=== PATIENT | male | born 1965 | race Caucasian/White ===

== ENCOUNTER 2024-03-16 08:42 | Outpatient (CLI) | payer BC ==
[2024-03-16 10:08] LABS: #Basophils 0.03 10x3/uL (0.0-0.2); %Basophils 0.5 % (0.0-1.0); %Eosinophils 1.4 % (0.0-10.0); %Lymphocytes 23.1 % (21.0-51.0); %Monocytes 8.1 % (0.0-10.0); %Neutrophils 66.4 % (42.0-75.0); Hematocrit 38.1 % (42.0-52.0); Hemoglobin 12.2 g/dL (14.0-18.0); Mean Platelet Volume 10.1 fL (7.4-10.4); Platelet Count 175 10x3/uL (130-400); RBC Distribution Width 13.2 % (11.5-14.5); Red Blood Cell (RBC) Count 3.81 mill/uL (4.70-6.10)
[2024-03-16 10:12] LABS: Bilirubin Negative (Negative); Blood, Urine Negative (Negative); Clarity Clear (Clear); Glucose, Urine (Dipstick) Normal (Negative); Ketone, Urine Negative (Negative); Leukocyte Negative Leu/uL (Negative); Nitrite Negative (Negative); Protein, Urine (Dipstick) Negative (Neg-Trace); Specific Gravity, Urine 1.002 (1.002-1.036); Urobilinogen Normal mg/dL (Less than 2)
[2024-03-16 10:33] LABS: Anion Gap 12 mmol/L (10-20); BUN (Urea Nitrogen) 12 mg/dL (8.4-25.7); Calc. Creatinine Clearance 0 mL/min (70-130); Carbon Dioxide 25 mmol/L (22-29); Chloride 106 mmol/L (98-107); Estimated GFR 102; Glucose 95 mg/dL (70-105); Potassium 4.1 mmol/L (3.5-5.1); Sodium 139 mmol/L (136-145)
== END 2024-03-16 08:43 | disposition home or self-care (01) ==
LOC: LABBT 08:42
PROVIDERS: ATTEND Orthopaedic Surgery
DX: Z01.818 Encounter for other preprocedural examination (principal); M17.11 Unilateral primary osteoarthritis, right knee
CPT/HCPCS: 71046; 80048; 81003; 85025; 85610; 87081; 93005; 93010

== ENCOUNTER 2024-03-16 13:54 | Outpatient (CLI) | payer BC | END 2024-03-16 13:55 | disposition home or self-care (01) | LOC: CT 13:54 | PROVIDERS: ATTEND Orthopaedic Surgery | DX: M17.11 Unilateral primary osteoarthritis, right knee (principal) ==

== ENCOUNTER 2024-03-21 08:42 | Inpatient (IN) | payer BC ==
[2024-03-21] MEDS ORDERED: Vancomycin (BATCH) 1.5 GM/300 ML BAG ONE (09:30)
[2024-03-21] MEDS ORDERED: Tranexamic Acid 1,000 MG/10 ML VIAL ONE ×2 (09:30→13:31)
[2024-03-21] MEDS ORDERED: Sodium Chloride 0.9% 100 ML ONE (09:30)
[2024-03-21] MEDS ORDERED: Famotidine/PF 20 mg/2ml Vial ONE (09:31)
[2024-03-21] MEDS ORDERED: Bupivacaine PF 0.5% 30 ML VIAL ONE ×2 (10:33→11:27)
[2024-03-21] MEDS ORDERED: Midazolam HCl 2 mg/2 ml Vial ONE (10:33)
[2024-03-21] MEDS ORDERED: fentaNYL 50 mcg/mL 1 mL Vial ONE (10:33)
[2024-03-21] MEDS ORDERED: fentaNYL PF 100 MCG/2 ML SYRINGE ONE (10:47)
[2024-03-21] MEDS ORDERED: PROPOFOL 20 ML ONE ×2 (10:47→11:36)
[2024-03-21] MEDS ORDERED: Ondansetron PF 4 MG/2 ML Vial ONE ×2 (10:47→11:41)
[2024-03-21] MEDS ORDERED: Lidocaine 1% PF 5 ML VIAL ONE (10:47)
[2024-03-21] MEDS ORDERED: Dexamethasone 20 MG/5 ML VIAL ONE (10:47)
[2024-03-21] MEDS ORDERED: Lidocaine 2% 6 ML (Jelly) SYR ONE (10:48)
[2024-03-21] MEDS ORDERED: Bupivacaine HCl 0.5%/Epinephrine 1:200,000/PF 30 ml Vial ONE (11:10)
[2024-03-21] MEDS ORDERED: CEFAZOLIN 2 GM VIAL ONE (11:27)
[2024-03-21] MEDS ORDERED: Ropivacaine 0.2% 550 ML 550 ML NERVE BLCK SCH (11:30)
[2024-03-21] MEDS ORDERED: Zolpidem Tartrate 5 MG TAB PO PRN ×2 (11:30→13:46)
[2024-03-21] MEDS ORDERED: fentaNYL 50 mcg/mL 1 mL Vial SLOW IVP PRN (11:30)
[2024-03-21] MEDS ORDERED: Promethazine HCl 25 MG/ML VIAL IM PRN ×3 (11:30→14:45)
[2024-03-21] MEDS ORDERED: traMADol HCl 50 MG TAB PO PRN (11:30)
[2024-03-21] MEDS ORDERED: Ondansetron PF 4 MG/2 ML Vial IVP PRN (11:30)
[2024-03-21] MEDS ORDERED: PHENYLEPHRINE-NS 100 MCG/ML 10 ML SYRINGE ONE ×2 (11:40→12:25)
[2024-03-21] MEDS ORDERED: diphenhydrAMINE 25 MG CAP PO PRN (13:46)
[2024-03-21] MEDS ORDERED: Meperidine HCl/PF 25 MG (1 mL) VIAL ONE (14:16)
[2024-03-21] MEDS ORDERED: Meperidine HCl/PF 25 MG/ML VIAL IV PRN (14:45)
[2024-03-21] MEDS ORDERED: Ondansetron HCl/PF 4 MG/2 ML Vial IVP PRN (14:45)
[2024-03-21] MEDS ORDERED: HYDROmorphone 2 MG/ML VIAL SLOW IVP PRN (14:45)
[2024-03-21 15:59] VITALS: BMI 27.2
[2024-03-21] MEDS: Ketorolac Tromethamine 30 MG (1 mL) VIAL IVP SCH (16:22)
[2024-03-21] MEDS: BEER 1 CAN PO SCH (17:23)
[2024-03-21] MEDS: CEFAZOLIN 2 GM in Sodium Chloride 0.9% 100 ML IVPB SCH (20:46)
[2024-03-21] MEDS: Aspirin 81 mg Enteric Coated Tablet PO SCH (20:47)
[2024-03-21] MEDS: Vancomycin (BATCH) 1.5 GM in Premix 1 BAG IVPB SCH (22:19)
[2024-03-22 05:15] LABS: Hemoglobin 10.1 g/dL (14.0-18.0); Mean Corpuscular HGB CONC 32.6 g/dL (32.0-36.0); Mean Corpuscular Hemoglobin 32.7 pg (27.0-31.0); Mean Corpuscular Volume 100.3 fL (78.0-98.0); Mean Platelet Volume 10.1 fL (7.4-10.4); Platelet Count 135 10x3/uL (130-400); RBC Distribution Width 13.1 % (11.5-14.5); Red Blood Cell (RBC) Count 3.09 mill/uL (4.70-6.10)
[2024-03-22] MEDS: Ferrous Gluconate 324 MG TAB PO SCH (08:13)
[2024-03-22] MEDS: Multivitamin W/ Minerals 1 TAB PO SCH (08:14)
[2024-03-22] MEDS: HYDROcodone/Acetaminophen 10/325 mg Tablet PO PRN (08:14)
[2024-03-22] MEDS: Senokot S 8.6-50 MG TAB PO SCH (08:14)
[2024-03-22] MEDS ORDERED: Lorazepam 2 MG/ML VIAL IM PRN (18:50)
[2024-03-22] MEDS ORDERED: Lorazepam 0.5 MG TAB PO PRN (18:58)
[2024-03-22] MEDS: Folic Acid 1 MG TAB PO SCH (21:01)
[2024-03-22] MEDS: Thiamine 100 MG TAB PO SCH (21:01)
[2024-03-22 21:58] LABS: ALT (SGPT) 18 U/L (8-55); AST (SGOT) 15 U/L (5-34); Albumin 3.4 g/dL (3.5-5.0); Alkaline Phosphatase 48 U/L (40-110); Anion Gap 11 mmol/L (10-20); BUN (Urea Nitrogen) 20 mg/dL (8.4-25.7); Bilirubin, Total 0.3 mg/dL (0.2-1.2); Calc. Creatinine Clearance 109 mL/min (70-130); Calcium 8.6 mg/dL (7.8-10.44); Carbon Dioxide 26 mmol/L (22-29); Chloride 102 mmol/L (98-107); Estimated GFR 80; Globulin 2.7 g/dL (2.4-3.5); Glucose 127 mg/dL (70-105); Magnesium 2.1 mg/dL (1.6-2.6); Potassium 3.8 mmol/L (3.5-5.1); Protein, Total 6.1 g/dL (6.0-8.3); Sodium 135 mmol/L (136-145)
[2024-03-23 05:45] LABS: Hematocrit 27.4 % (42.0-52.0); Hemoglobin 8.7 g/dL (14.0-18.0); Mean Corpuscular HGB CONC 31.8 g/dL (32.0-36.0); Mean Corpuscular Hemoglobin 32.1 pg (27.0-31.0); Mean Corpuscular Volume 101.1 fL (78.0-98.0); Mean Platelet Volume 10.6 fL (7.4-10.4); Platelet Count 129 10x3/uL (130-400); RBC Distribution Width 13.4 % (11.5-14.5); Red Blood Cell (RBC) Count 2.71 mill/uL (4.70-6.10)
[2024-03-23] MEDS: Amlodipine 5 MG TAB PO SCH (08:58)
[2024-03-23] MEDS: Rosuvastatin 20 MG TAB PO SCH (08:58)
[2024-03-23] MEDS: Folic Acid 1 MG TAB PO SCH (08:58)
[2024-03-23] MEDS: HYDROcodone/Acetaminophen 10/325 mg Tablet PO PRN (08:58)
[2024-03-23] MEDS: Lisinopril 20 MG TAB PO SCH (08:58)
[2024-03-23] MEDS ORDERED: Multivit, Therapeutic 1 TAB PO SCH (09:00)
[2024-03-23] MEDS: traMADol HCl 50 MG TAB PO PRN (20:32)
[2024-03-24] MEDS: Acetaminophen 325 MG TAB PO PRN (04:09)
[2024-03-24 06:18] LABS: Hematocrit 28.6 % (42.0-52.0); Mean Corpuscular HGB CONC 31.5 g/dL (32.0-36.0); Mean Corpuscular Volume 101.8 fL (78.0-98.0); Mean Platelet Volume 9.7 fL (7.4-10.4); Platelet Count 127 10x3/uL (130-400); RBC Distribution Width 13.8 % (11.5-14.5); Red Blood Cell (RBC) Count 2.81 mill/uL (4.70-6.10)
[2024-03-25] MEDS: Thiamine 100 MG TAB PO SCH (18:47)
[2024-03-27] MEDS: Ondansetron ODT 4 MG TAB PO PRN (06:53)
[2024-03-27] MEDS: Sodium Chloride 0.9% 1,000 ML IV SCH (09:51)
[2024-03-28 08:19] LABS: Hematocrit 31.8 % (42.0-52.0); Hemoglobin 10.4 g/dL (14.0-18.0); Mean Corpuscular HGB CONC 32.7 g/dL (32.0-36.0); Mean Corpuscular Hemoglobin 31.8 pg (27.0-31.0); Mean Corpuscular Volume 97.2 fL (78.0-98.0); Mean Platelet Volume 10.2 fL (7.4-10.4); Platelet Count 238 10x3/uL (130-400); RBC Distribution Width 13.5 % (11.5-14.5); Red Blood Cell (RBC) Count 3.27 mill/uL (4.70-6.10)
[2024-03-28 08:22] LABS: Anion Gap 15 mmol/L (10-20); BUN (Urea Nitrogen) 26 mg/dL (8.4-25.7); Calc. Creatinine Clearance 138 mL/min (70-130); Carbon Dioxide 25 mmol/L (22-29); Chloride 94 mmol/L (98-107); Estimated GFR 100; Glucose 124 mg/dL (70-105); Potassium 3.5 mmol/L (3.5-5.1); Sodium 130 mmol/L (136-145)
[2024-03-28] MEDS: Ondansetron PF 4 MG/2 ML Vial IVP PRN (08:30)
[2024-03-28 08:56] LABS: Band 50 % (5-11); Dohle Bodies SLIGHT; Giant Platelets 1.9 % (0-5); Large Platelets 3.7 % (0-5); Lymphocytes 13 % (21-51); Metamyelocyte 12 % (0-0); Monocytes 19 % (0-10); Neutrophil 4 % (42-75); Platelet Adequacy Comment Platelets Normal; Polychromasia SLIGHT = 2-3 cells HPF (0-2); Toxic Granulation SLIGHT
[2024-03-28] MEDS ORDERED: Iopamidol-370 76% 500 ML MDV (1 ML CHARGE) ONE (09:43)
[2024-03-28] MEDS: Glycerin Adult Supp. (12 ct jar) RC PRN (14:28)
[2024-03-28] MEDS ORDERED: traMADol HCl 50 MG TAB PO PRN (17:06)
[2024-03-28] MEDS: Acetaminophen 500 MG TAB PO SCH (17:39)
[2024-03-29 05:46] LABS: Anion Gap 17 mmol/L (10-20); BUN (Urea Nitrogen) 40 mg/dL (8.4-25.7); Calc. Creatinine Clearance 118 mL/min (70-130); Carbon Dioxide 30 mmol/L (22-29); Chloride 92 mmol/L (98-107); Estimated GFR 88; Glucose 119 mg/dL (70-105); Magnesium 2.6 mg/dL (1.6-2.6); Phosphorus 3.4 mg/dL (2.3-4.7); Potassium 3.6 mmol/L (3.5-5.1); Sodium 135 mmol/L (136-145)
[2024-03-29 05:47] LABS: Hematocrit 32.5 % (42.0-52.0); Hemoglobin 10.6 g/dL (14.0-18.0); Mean Corpuscular HGB CONC 32.6 g/dL (32.0-36.0); Mean Corpuscular Hemoglobin 30.9 pg (27.0-31.0); Mean Corpuscular Volume 94.8 fL (78.0-98.0); Mean Platelet Volume 10.3 fL (7.4-10.4); Platelet Count 272 10x3/uL (130-400); RBC Distribution Width 13.6 % (11.5-14.5); Red Blood Cell (RBC) Count 3.43 mill/uL (4.70-6.10)
[2024-03-29 06:38] LABS: Anisocytosis SLIGHT = 6-15 cells HPF (0-5); Band 29 % (5-11); Dohle Bodies SLIGHT; Hypochromia SLIGHT = 6-15 cells HPF (0-5); Lymphocytes 11 % (21-51); Metamyelocyte 1 % (0-0); Monocytes 11 % (0-10); Myelocyte 2 % (0-0); Neutrophil 45 % (42-75); Platelet Adequacy Comment Platelets Normal; Polychromasia SLIGHT = 2-3 cells HPF (0-2); Reactive Lymphocytes 2 % (0-10); Tear Drops SLIGHT = 2-5 cells HPF (0-1); Toxic Granulation MODERATE
[2024-03-29] MEDS: Sodium Chloride 0.9% 1,000 ML IV SCH ×3 (11:35→17:07)
[2024-03-29 13:00] VITALS: BMI 27.2
[2024-03-29] MEDS: Thiamine HCl 200 MG/2 ML VIAL SLOW IVP SCH (17:50)
[2024-03-30 06:00] LABS: Hematocrit 28.5 % (42.0-52.0); Hemoglobin 9.2 g/dL (14.0-18.0); Mean Corpuscular HGB CONC 32.3 g/dL (32.0-36.0); Mean Corpuscular Hemoglobin 31.2 pg (27.0-31.0); Mean Corpuscular Volume 96.6 fL (78.0-98.0); Mean Platelet Volume 10.1 fL (7.4-10.4); Platelet Count 244 10x3/uL (130-400); RBC Distribution Width 13.7 % (11.5-14.5); Red Blood Cell (RBC) Count 2.95 mill/uL (4.70-6.10)
[2024-03-30 06:01] LABS: Anion Gap 10 mmol/L (10-20); BUN (Urea Nitrogen) 36 mg/dL (8.4-25.7); Calc. Creatinine Clearance 153 mL/min (70-130); Calcium 8.2 mg/dL (7.8-10.44); Carbon Dioxide 29 mmol/L (22-29); Chloride 98 mmol/L (98-107); Estimated GFR 103; Glucose 90 mg/dL (70-105); Magnesium 2.5 mg/dL (1.6-2.6); Potassium 3.3 mmol/L (3.5-5.1); Sodium 134 mmol/L (136-145)
[2024-03-30 07:30] LABS: Band 23 % (5-11); Eosinophils 1 % (0-10); Lymphocytes 21 % (21-51); Monocytes 13 % (0-10); Neutrophil 43 % (42-75); Platelet Adequacy Comment Platelets Normal; RBC Morphology Within Normal Limits
[2024-03-30] MEDS: Potassium Chloride 20 MEQ in Premix 1 BAG IVPB SCH (09:42)
[2024-03-31 06:08] LABS: Hematocrit 26.4 % (42.0-52.0); Hemoglobin 8.3 g/dL (14.0-18.0); Mean Corpuscular HGB CONC 31.4 g/dL (32.0-36.0); Mean Corpuscular Hemoglobin 30.7 pg (27.0-31.0); Mean Corpuscular Volume 97.8 fL (78.0-98.0); Mean Platelet Volume 9.7 fL (7.4-10.4); Platelet Count 219 10x3/uL (130-400); RBC Distribution Width 13.3 % (11.5-14.5)
[2024-03-31 06:20] LABS: Anion Gap 11 mmol/L (10-20); BUN (Urea Nitrogen) 21 mg/dL (8.4-25.7); Calc. Creatinine Clearance 170 mL/min (70-130); Carbon Dioxide 23 mmol/L (22-29); Chloride 107 mmol/L (98-107); Estimated GFR 106; Glucose 73 mg/dL (70-105); Magnesium 2.2 mg/dL (1.6-2.6); Potassium 3.9 mmol/L (3.5-5.1); Sodium 137 mmol/L (136-145)
[2024-03-31 06:33] LABS: Anisocytosis SLIGHT = 6-15 cells HPF (0-5); Band 8 % (5-11); Eosinophils 1 % (0-10); Lymphocytes 22 % (21-51); Metamyelocyte 1 % (0-0); Monocytes 9 % (0-10); Neutrophil 59 % (42-75); Platelet Adequacy Comment Platelets Normal; Polychromasia SLIGHT = 2-3 cells HPF (0-2); Tear Drops SLIGHT = 2-5 cells HPF (0-1)
[2024-03-31] MEDS ORDERED: Ibuprofen 600 MG TAB PO PRN (11:35)
[2024-03-31] MEDS ORDERED: traMADol HCl 50 MG TAB PO PRN (11:36)
[2024-03-31] MEDS: Acetaminophen 500 MG TAB PO SCH (13:15)
[2024-03-31] MEDS: Enoxaparin 40 MG (0.4 mL) SYRINGE SC SCH ×2 (13:56→20:45)
[2024-04-01 05:45] LABS: Hematocrit 26.5 % (42.0-52.0); Hemoglobin 8.6 g/dL (14.0-18.0)
[2024-04-01 06:15] VITALS: BP 114/72; TEMP 98.1
[2024-04-01 06:34] LABS: Anion Gap 13 mmol/L (10-20); BUN (Urea Nitrogen) 11 mg/dL (8.4-25.7); Calc. Creatinine Clearance 181 mL/min (70-130); Calcium 8.3 mg/dL (7.8-10.44); Carbon Dioxide 23 mmol/L (22-29); Chloride 106 mmol/L (98-107); Estimated GFR 108; Glucose 119 mg/dL (70-105); Potassium 3.5 mmol/L (3.5-5.1); Sodium 138 mmol/L (136-145)
[2024-04-01] MEDS: Aspirin 81 mg Enteric Coated Tablet PO SCH (09:21)
== END 2024-04-01 11:11 | disposition home or self-care (01) | DRG 470 ==
LOC: SDC 08:42 → SURG A 15:30 → SDC 18:18 → SURG A 18:19 → OBSVTOIN 03-22 14:17
PROVIDERS: ADMIT Orthopaedic Surgery; ATTEND Orthopaedic Surgery
PROC: 0SRC0J9 Replacement of Right Knee Joint with Synthetic Substitute, Cemented, Open Approach (ICD-10-PCS; principal; 2024-03-21)
PROC: 8E0Y0CZ Robotic Assisted Procedure of Lower Extremity, Open Approach (ICD-10-PCS; 2024-03-21)
PROC: 0D9670Z Drainage of Stomach with Drainage Device, Via Natural or Artificial Opening (ICD-10-PCS; 2024-03-27)
DX: M17.11 Unilateral primary osteoarthritis, right knee (principal); K56.7 Ileus, unspecified; D62 Acute posthemorrhagic anemia; E78.5 Hyperlipidemia, unspecified; I10 Essential (primary) hypertension; F10.10 Alcohol abuse, uncomplicated; Z96.652 Presence of left artificial knee joint
CPT/HCPCS: 36415; 74018; 74177; 80048; 80053; 83735; 84100; 85014; 85018; 85025; 85027; 96365; 96366; 96367; 96375; 96376; A4306; C1713; C1776; C1889; G0378; J0665; J1100; J1650; J1885; J2175; J2250; J2405; J2704; J2795; J3010; J3370; J3411; J3480; J3490; J7030; Q0162; Q9967